=== PATIENT | female | born 1995 | race African-American/Black ===

== ENCOUNTER 2018-05-09 12:50 | Emergency (ER) | payer OTHER ==
[~2018-05-09] VITALS: Ht 175.3 cm; Wt 79.5 kg
[2018-05-09 12:52] VITALS: Ht 175.3 cm; Wt 79.5 kg
[2018-05-09 14:20] VITALS: BP 110/62
== END 2018-05-09 14:20 | disposition home or self-care (01) ==
LOC: ED 12:50
DX: J02.9 Acute pharyngitis, unspecified (principal)
CPT/HCPCS: J1100